=== PATIENT | female | born 1990 | race American Indian/Alaskan Native ===

== ENCOUNTER 2020-04-21 14:09 | Emergency (ER) | payer OTHER ==
[2020-04-21 14:17] VITALS: BP 126/65
--- NOTE | 2020-04-21 15:42 | Emergency Department Report ---
ED Recheck HPI - General Chief Complaint: Recheck/Abnormal Lab/Rx Stated Complaint: BLOOD TEST Time Seen by Provider: 04/21/20 15:42 Source: patient Mode of arrival: Ambulatory Limitations: No Limitations - History of Present Illness Initial Comments: 30-year-old -[place] female presents to the emergency room states that she was told to return back in 2 days after being seen on Friday to have a repeat hCG. Patient presents today unable to come back on Friday. Patient states that the bleeding has stopped and she still has some mild cramping. Complaint: abnormal lab - Related Data Allergies Allergy/AdvReac Type Severity Reaction Status Date / Time No Known Allergies Allergy Unverified 03/11/20 10:26 ED Review of Systems ROS: Stated complaint: BLOOD TEST Other details as noted in HPI ED Past Medical Hx - Past Medical History Previous Medical History?: No - Surgical History Past Surgical History?: Yes Additional Surgical History: Cervical biopsy, Tonsillectomy - Social History Smoking Status: Never Smoker Substance Use Type: Alcohol ED Physical Exam - General Limitations: No Limitations General appearance: alert, in no apparent distress - Head Head exam: Present: atraumatic, normocephalic - ENT ENT exam: Present: mucous membranes moist - Neurological Exam Neurological exam: Present: alert, oriented X3, normal gait - Psychiatric Psychiatric exam: Present: normal affect, normal mood - Skin Skin exam: Present: warm, dry, intact, normal color. Absent: rash ED Course Vital Signs 04/21/20 14:15 Temperature 98.7 F Pulse Rate 77 Respiratory 14 Rate Blood Pressure 126/65 O2 Sat by Pulse 98 Oximetry ED Recheck [facility] - Medical Decision Making 30-year-old -[place] female presents to the emergency room states that she was told to return back in 2 days after being seen on Friday to have a rep eat hCG. Patient presents today unable to come back on Friday. Patient states that the bleeding has stopped and she still has some mild cramping. Discussed with patient that her hCG is 0.855 that she has had a spontaneous /miscarriage. I recommend patient to still follow-up with a [facility] [employer]. Critical care attestation.: If time is entered above; I have spent that time in minutes in the direct care of this critically ill patient, excluding procedure time. ED Disposition Clinical Impression: Threatened Disposition: DC-01 TO HOME OR SELFCARE Is pt being admited?: No Does the pt Need Aspirin: No Condition: Stable Additional Instructions: Your hCG has come down to 0.855. It appears that you have had a spontaneous /miscarriage. I recommend to follow-up with an [facility] TE[facility]. [facility] [Primary Care Provider] - 3-5 Days Forms: Work/School Release Form(ED)
== END 2020-04-21 16:21 | disposition home or self-care (01) ==
LOC: ED 14:09
DX: O20.0 Threatened abortion (principal); Z3A.00 Weeks of gestation of pregnancy not specified; Z98.890 Other specified postprocedural states; Z90.89 Acquired absence of other organs
CPT/HCPCS: 36415; 84702

== ENCOUNTER 2020-12-28 08:38 | Emergency (ER) | payer OTHER ==
[2020-12-28 08:51] VITALS: BP 127/76
--- NOTE | 2020-12-28 09:08 | Emergency Department Report ---
<JOSE J AGUIRRE - Last Filed: 12/28/20 12:34> ED Female HPI - General Chief complaint: Abdominal Pain Stated complaint: /STOMACH PAIN/BLEEDING Time Seen by Provider: 12/28/20 09:07 Source: patient Mode of arrival: Ambulatory Limitations: No Limitations - History of Present Illness Initial comments: Patient is a 30-year-old -[place] female that comes to the ER complaining of cramping as she would have during menses and vaginal bleeding. Patient is . Last menstrual cycle was 11/19/2020. Miscarriage 1 She has not been seen by [facility]. She states that the bleeding is light. She denies chest pain, shortness of breath, vaginal discharge, dysuria or back pain. She is ambulatory nontoxic and [id number] on arrival to [facility] MD Complaint: vaginal bleeding -: Gradual, days(s) Severity: mild Quality: cramping Consistency: intermittent Improves with: none Worsens with: none Are you Now?: Yes Associated Symptoms: denies other symptoms, vaginal bleeding. denies: vaginal discharge - Related Data Allergies Allergy/AdvReac Type Severity Reaction Status Date / Time No Known Allergies Allergy Unverified 03/11/20 10:26 ED Review of Systems Comment: All other systems reviewed and negative ED Past Medical Hx - Past Medical History Previous Medical History?: No - Surgical History Past Surgical History?: Yes Additional Surgical History: Cervical biopsy, Tonsillectomy - Family History Family history: no significant - Social History Smoking Status: Never Smoker Substance Use Type: Alcohol ED Physical Exam - General Limitations: No Limitations General appearance: alert, in no apparent distress - Head Head exam: Present: atraumatic, normocephalic - Eye Eye exam: Present: normal appearance - ENT ENT exam: Present: mucous membranes moist - Neck Neck exam: Present: normal inspection - Respiratory Respiratory exam: Present: normal lung sounds bilaterally. Absent: respiratory distress - Cardiovascular Cardiovascular Exam: Present: regular rate, normal rhythm. Absent: systolic murmur, diastolic murmur, rubs, gallop - GI/Abdominal GI/Abdominal exam: Present: soft, normal bowel sounds - Speculum exam: Present: vaginal bleeding. Absent: erythema, vaginal discharge, cervical discharge, foreign body, tissue, laceration Bi-manual exam: Absent: cervical motion tendernes, adnexal tenderness, adnexal mass, uterine enlargement, uterine tenderness - Extremities Exam Extremities exam: Present: normal inspection - Back Exam Back exam: Present: normal inspection - Neurological Exam Neurological exam: Present: alert, oriented X3 - Psychiatric Psychiatric exam: Present: normal affect, normal mood - Skin Skin exam: Present: warm, dry, intact, normal color. Absent: rash ED Medical Decision Making - Lab Data Result diagrams: 12/28/20 09:23 12/28/20 09:23 - Radiology Data Radiology results: report reviewed, image reviewed see report - Medical Decision Making Lab Results 12/28/20 12/28/20 12/28/20 Range/Units 09:23 09:23 09:23 WBC 7.8 (4.5-11.0) K/mm3 RBC 4.35 (3.65-5.03) M/mm3 Hgb 11.4 (10.1-14.3) gm/dl Hct 34.1 (30.3-42.9) % MCV 79 (79-97) fl MCH 26 L (28-32) pg MCHC 33 (30-34) % RDW 14.5 (13.2-15.2) % Plt Count 292 (140-440) K/mm3 Lymph % (Auto) 30.7 (13.4-35.0) % Foster % (Auto) 5.1 (0.0-7.3) % Eos % (Auto) 1.1 (0.0-4.3) % Baso % (Auto) 0.5 (0.0-1.8) % Lymph # (Auto) 2.4 (1.2-5.4) K/mm3 Foster # (Auto) 0.4 (0.0-0.8) K/mm3 Eos # (Auto) 0.1 (0.0-0.4) K/mm3 Baso # (Auto) 0.0 (0.0-0.1) K/mm3 Seg Neutrophils % 62.6 (40.0-70.0) % Seg Neutrophils # 4.9 (1.8-7.7) K/mm3 Sodium 135 L (137-145) mmol/L Potassium 4.2 (3.6-5.0) mmol/L Chloride 101.1 (98-107) mmol/L Carbon Dioxide 23 (22-30) mmol/L Anion Gap 15 mmol/L BUN 11 (7-17) mg/dL Creatinine 0.6 (0.6-1.2) mg/dL Estimated GFR > 60 ml/min BUN/Creatinine Ratio 18 % Glucose 87 (65-100) mg/dL Calcium 8.9 (8.4-10.2) mg/dL Total Bilirubin 0.40 (0.1-1.2) mg/dL AST 12 (5-40) units/L ALT 11 (7-56) units/L Alkaline Phosphatase 54 (35-129) units/L Total Protein 7.3 (6.3-8.2) g/dL Albumin 4.2 (3.9-5) g/dL Albumin/Globulin Ratio 1.4 % HCG, Quant 1943 H (0-4) mIU/mL Blood Type Ord Rhogam Gestat Weeks WEEKS 12/28/20 Range/Units 09:23 WBC (4.5-11.0) K/mm3 RBC (3.65-5.03) M/mm3 Hgb (10.1-14.3) gm/dl Hct (30.3-42.9) % MCV (79-97) fl MCH (28-32) pg MCHC (30-34) % RDW (13.2-15.2) % Plt Count (140-440) K/mm3 Lymph % (Auto) (13.4-35.0) % Foster % (Auto) (0.0-7.3) % Eos % (Auto) (0.0-4.3) % Baso % (Auto) (0.0-1.8) % Lymph # (Auto) (1.2-5.4) K/mm3 Foster # (Auto) (0.0-0.8) K/mm3 Eos # (Auto) (0.0-0.4) K/mm3 Baso # (Auto) (0.0-0.1) K/mm3 Seg Neutrophils % (40.0-70.0) % Seg Neutrophils # (1.8-7.7) K/mm3 Sodium (137-145) mmol/L Potassium (3.6-5.0) mmol/L Chloride (98-107) mmol/L Carbon Dioxide (22-30) mmol/L Anion Gap mmol/L BUN (7-17) mg/dL Creatinine (0.6-1.2) mg/dL Estimated GFR ml/min BUN/Creatinine Ratio % Glucose (65-100) mg/dL Calcium (8.4-10.2) mg/dL Total Bilirubin (0.1-1.2) mg/dL AST (5-40) units/L ALT (7-56) units/L Alkaline Phosphatase (35-129) units/L Total Protein (6.3-8.2) g/dL Albumin (3.9-5) g/dL Albumin/Globulin Ratio % HCG, Quant (0-4) mIU/mL Blood Type O POSITIVE Ord Rhogam Gestat Weeks Rh pos WEEKS Vital Signs 12/28/20 08:48 Temperature 98.2 F Pulse Rate 85 Respiratory 17 Rate Blood Pressure 127/76 [Right] O2 Sat by Pulse 100 Oximetry labs noted rh pos us noted ua noted pt updated on results. pt being dc home with dc plan of care including obgyn follow up in 48 hours for reevaluation. She verbalizes understanding of dc plan of care On dc pt ambulatory, non ill, non toxic appearing. Taking PO and NAD - Differential Diagnosis ro ab; ectopic ED Disposition Clinical Impression: Vaginal bleeding during Disposition: DC-01 TO HOME OR SELFCARE Is pt being admited?: No Does the pt Need Aspirin: No Condition: Stable Instructions: Activity Restriction During , Abdominal Pain (ED) Additional Instructions: pelvic rest call Dr Frank or your ob today and make appnt for follow up labs and imaging - in 48 hours RH pos HCG today 1942 tylenol for pain stay well hydrated Referrals: DASIA FRANK MD [Staff Physician] - 3-5 Days Time of Disposition: 12:24 <POONAM NORRIS - Last Filed: 12/28/20 15:02> ED Review of Systems ROS: Stated complaint: /STOMACH PAIN/BLEEDING Other details as noted in HPI ED Course Vital Signs 12/28/20 08:48 Temperature 98.2 F Pulse Rate 85 Respiratory 17 Rate Blood Pressure 127/76 [Right] O2 Sat by Pulse 100 Oximetry ED Medical Decision Making - Lab Data Result diagrams: 12/28/20 09:23 12/28/20 09:23 Critical care attestation.: If time is entered above; I have spent that time in minutes in the direct care of this critically ill patient, excluding procedure time. ED Disposition Is pt being admited?: No Does the pt Need Aspirin: No
[2020-12-28 09:52] LABS: Basophils % (Auto) 0.5 % (0.0-1.8); Eosinophils # (Auto) 0.1 K/mm3 (0.0-0.4); Eosinophils % (Auto) 1.1 % (0.0-4.3); Hematocrit 34.1 % (30.3-42.9); Hemoglobin 11.4 gm/dl (10.1-14.3); Lymphocytes # (Auto) 2.4 K/mm3 (1.2-5.4); Lymphocytes % (Auto) 30.7 % (13.4-35.0); Mean Corpuscular HGB Conc 33 % (30-34); Mean Corpuscular Volume 79 fl (79-97); Monocytes # (Auto) 0.4 K/mm3 (0.0-0.8); Monocytes % (Auto) 5.1 % (0.0-7.3); Platelet Count 292 K/mm3 (140-440); Red Blood Count 4.35 M/mm3 (3.65-5.03); Red Cell Distribution Width 14.5 % (13.2-15.2)
[2020-12-28 10:26] LABS: Alanine Aminotransferase 11 units/L (7-56); Albumin 4.2 g/dL (3.9-5); Blood Urea Nitrogen 11 mg/dL (7-17); Calcium 8.9 mg/dL (8.4-10.2); Hemolysis Index 2
[2020-12-28 10:27] LABS: BUN/Creatinine Ratio 18
--- NOTE | 2020-12-28 12:03 | Ultrasound Report ---
ULTRASOUND OBSTETRIC INDICATION / CLINICAL INFORMATION: ABD PAIN IN PREG. Clinical Gestational Age (GA): 5.4 weeks.days TECHNIQUE: Transabdominal and Transvaginal. COMPARISON: None available. FINDINGS: GESTATIONAL SAC: Well-defined oval shape and intrauterine in location. Mean gestational sac diameter measures 5.4 mm (5 weeks 2 days) YOLK SAC: No significant abnormality. EMBRYO/FETUS: No pole is noted at this time. ADNEXA: Likely corpus luteal cyst noted of the right ovary measures 1.9 cm. The left ovary is unremar kable. FREE FLUID: None. ADDITIONAL FINDINGS: None. IMPRESSION: 1. Intrauterine gestational sac is noted without definitive evidence of pole at this time, like ly secondary to early dates. Ultrasound age via gestational sac diameter is 5.2 (weeks.Days). Close u ltrasound and clinical follow-up is recommended. Signer Name: Harish Burch MD Signed: 12/28/2020 11:57 AM Workstation Name: [id number]
[2020-12-28 12:25] LABS: Bilirubin,Urine NEG (Negative); Blood,Urine NEG (Negative); Color,Urine Colorless (Yellow); Protein,Urine <15 mg/dL mg/dL (Negative); Urobilinogen,Urine < 2.0 mg/dL (<2.0); WBC,Urine < 1.0 /HPF (0.0-6.0)
== END 2020-12-28 12:30 | disposition home or self-care (01) ==
LOC: ED 08:38
DX: O20.9 Hemorrhage in early pregnancy, unspecified (principal); Z90.89 Acquired absence of other organs; Z98.890 Other specified postprocedural states
CPT/HCPCS: 36415; 76801; 76817; 80053; 81001; 84702; 85025; 86900; 86901; 99284

== ENCOUNTER 2021-09-23 19:47 | Outpatient (CLI) | payer OTHER ==
[2021-09-23] MEDS ORDERED: LACTATED RINGERS 500 ML IV ONE (21:04)
[2021-09-23 21:43] LABS: Bilirubin,Urine NEG (Negative); Blood,Urine NEG (Negative); Color,Urine Yellow (Yellow); Mucus,Urine FEW /HPF; Protein,Urine <15 mg/dL mg/dL (Negative); Urobilinogen,Urine < 2.0 mg/dL (<2.0)
[2021-09-23 23:22] VITALS: BP 110/52
== END 2021-09-23 23:42 | disposition home or self-care (01) ==
LOC: TRG 19:47 → APU 19:51 → TRG 23:42
PROVIDERS: ATTEND Obstetrics & Gynecology
DX: O26.892 Other specified pregnancy related conditions, second trimester (principal); R10.9 Unspecified abdominal pain; Z3A.26 26 weeks gestation of pregnancy
CPT/HCPCS: 59025; 81001